=== PATIENT | female | born 1950 | race African-American/Black ===

== ENCOUNTER 2017-08-24 15:38 | Inpatient (IN) ==
--- NOTE | 2017-08-24 15:47 | Emergency Department Note ---
Disposition Clinical Impression: Congestive heart failure Qualifiers: Congestive heart failure type: unspecified Congestive heart failure chronicity : acute Qualified Code(s): I50.9 - Heart failure, unspecified Dyspnea Qualifiers: Dyspnea type: unspecified Qualified Code(s): R06.00 - Dyspnea, unspecified Disposition: Admitted As Inpatient Condition: Fair Referrals: Carlos Landon MD [Primary Care Provider] - Time of Disposition: 18:04 SOB HPI - General Chief Complaint: ED Shortness of Breath/Dyspnea Stated Complaint: edema/no urine x 24 hours Time Seen by Provider: 08/24/17 15:40 Source: patient, EMS Mode of arrival: EMS Limitations: no limitations Nursing Notes Reviewed: Yes Vital Signs Reviewed: Yes - History of Present Illness 67-year-old who comes in complaining of increasing lower extremity edema dyspnea and no urine output. Pt Subjective Complaint: shortness of breath Onset (ago): day(s) Severity: moderate Consistency/Duration: constant Improves with: nothing Worsens with: exertion Known history of: COPD, congestive heart failure Associated symptoms: Reports: other Treatment prior to arrival: none Cough present: Yes Cough Description: Involuntary (Snap) - Related Data Home Medications Medication Instructions Recorded Confirmed Brinzolamide/Brimonidine Tart 1 drop OP TID 06/24/15 08/09/17 [Simbrinza 1%-0.2% Eye Drops] Cholecalciferol (Vitamin D3) 2,000 unit PO DAILY 06/24/15 08/09/17 [Vitamin D3] HYDROcodone/Acet 5/325 mg [[place] 1 tab PO TID PRN 06/24/15 08/09/17 5-325 mg] Latanoprost [Xalatan] 1 drop OP HS 06/24/15 08/09/17 Simvastatin [Zocor] 40 mg PO HS 06/24/15 08/09/17 Albuterol Sulfate [Ventolin Hfa] 2 puff IH Q4H PRN 08/09/17 08/09/17 Budesonide/Formoterol 160/4.5 2 puff IH BID 08/09/17 08/09/17 [Symbicort 160/4.5] Ferrous Sulfate 325 mg PO DAILY 08/09/17 08/09/17 Folic Acid 1 mg PO DAILY 08/09/17 08/09/17 Insulin Glargine [Lantus] 62 unit SQ BID 08/09/17 08/09/17 Insulin LISPRO [Humalog Kwikpen 0 unit SQ TID 08/09/17 08/09/17 U-100] Tiotropium [Spiriva] 18 mcg IH DAILY 08/09/17 08/09/17 rOPINIRole [Requip] 0.25 mg PO HS 08/09/17 08/09/17 Previous Rx's Medication Instructions Recorded Carvedilol [Coreg] 3.125 mg PO BIDWM #60 tablet 06/27/15 Amiodarone [Cordarone] 400 mg PO BID 30 Days #120 tablet 08/16/17 Aspirin 81 mg PO DAILY 30 Days #30 tab.chew 08/16/17 Diltiazem CD (24hr) [Cardizem CD] 240 mg PO DAILY 30 Days #30 08/16/17 cap.er.24h Metoprolol [Lopressor] 50 mg PO BID 30 Days #120 tablet 08/16/17 Rivaroxaban [Xarelto] 15 mg PO 1700 30 Days #30 tablet 08/16/17 Allergies Allergy/AdvReac Type Severity Reaction Status Date / Time No Known Allergies Allergy Verified 06/24/15 17:24 All systems ED: reviewed and negative except as stated. Constitutional: Denies: fever, chills, weakness, weight change Eyes: Denies: eye pain, eye discharge, vision change ENT ED: Denies: ear pain, throat pain, dental pain, hearing loss, epistaxis, congestion, dysphagia Cardiovascular: Denies: chest pain, palpitations, dyspnea on exertion, edema, syncope Respiratory: Reports: dyspnea. Denies: cough, wheezes, hemoptysis, stridor Gastrointestinal: Denies: abdominal pain, nausea, vomiting, diarrhea, constipation, hematemesis, melena, hematochezia Genitourinary: Denies: dysuria, frequency, hematuria, discharge Musculoskeletal: Denies: back pain, neck pain, arthralgia, myalgia Integumentary: Denies: rash, abrasion, lesions Neurological: Denies: headache, weakness, numbness, paresthesias, confusion, abnormal gait, vertigo Psychiatric: Denies: anxiety, depression, suicidal thoughts, homicidal thoughts , auditory hallucinations, visual hallucinations Endocrine: Denies: fatigue Hematological/Lymphatic: Denies: easy bleeding, easy bruising Allergic/Immunologic: Denies: facial swelling, urticaria Past Medical History - Past Medical History Medical history: Reports: asthma, atrial fibrillation, diabetes, hyperlipidemia , hypertension, other Surgical history: Reports: cholecystectomy, hysterectomy Psychiatric history: Reports: no psych history - Social History Smoking Status: Current every day smoker Smokeless Tobacco Status: No Alcohol use: Reports: none Drug use: Reports: none Physical Exam - General Limitations: no limitations General appearance: alert, in no apparent distress - Head Head exam: atraumatic, normocephalic, normal inspection - Eye Eye exam: Present: normal appearance, PERRL, EOMI - ENT ENT exam: normal exam, normal oropharynx, mucous membranes moist - Neck Neck exam: Present: normal inspection, full ROM, trachea midline - Chest Chest inspection: Present: normal inspection, symmetric chest wall rise - Respiratory Respiratory exam: Present: wheezes, accessory muscle use, prolonged expiratory phase - Cardiovascular Cardiovascular exam: Present: regular rate, normal rhythm, normal heart sounds - Abdominal Exam Abdominal exam: Present: soft, Non-Tender. Absent: tenderness, distention, guarding, rebound, rigidity - Extremities Exam Extremities exam: Present: pedal edema - Expanded Lower Extremity Exam Neurovascular/Tendon exam: Absent: motor deficit, sensory deficit, tendon deficit Gait: not tested/not observed - Back Exam Back exam: Present: normal inspection, full ROM. Absent: tenderness - Neurological Exam Neurological exam: Present: alert, oriented X3 - Psychiatric Psychiatric exam: Present: normal affect, normal mood - Skin Skin exam: Present: warm, dry, intact, normal color Course - Reevaluation(s) Reevaluation #1: 67-year-old with increasing shortness of breath. Workup shows elevated BNP chest x-ray shows mild CHF patient was given Lasix. Also noted she does have some mild renal insufficiency. Time: 18:03 - Consultations Consultation #1: Discussed with Altaf Beltran, rupinder. Time: 18:03 Vital Signs Temperature 98 F 08/24/17 15:43 Pulse Rate 64 08/24/17 15:43 Respiratory Rate 18 08/24/17 15:43 Blood Pressure 135/120 08/24/17 15:43 O2 Sat by Pulse Oximetry 98 08/24/17 15:43 Temperature 98 F 08/24/17 15:43 Pulse Rate 64 08/24/17 15:43 Respiratory Rate 18 08/24/17 17:45 Blood Pressure 135/120 08/24/17 15:43 O2 Sat by Pulse Oximetry 96 08/24/17 17:45 Oxygen Delivery Oxygen Delivery Nasal Cannula Shortness of Breath/Dyspnea - Lab Data Lab results reviewed: Yes I reviewed the patient's lab results. Result diagrams: 08/24/17 15:52 08/24/17 15:52 Lab Results 08/24/17 08/24/17 08/24/17 Range/Units 15:52 15:52 15:52 WBC 10.0 (4.3-11.1) K/mcL RBC 4.74 (3.82-4.97) M/mcL Hgb 12.4 (11.5-15.4) g/dL Hct 42.0 (35.3-44.9) % MCV 88.6 (83.0-100.0) fL MCH 26.2 L (28.0-33.3) pg MCHC 29.5 L (31.6-35.5) g/dL RDW 18.4 H (11.5-14.5) % Plt Count 372 (140-400) K/mcL MPV 10.7 (9.4-12.4) fL Immature Gran % 0.4 (0-4) % Seg Neutrophils % 74.9 % Lymphocytes % 17.1 % Monocytes % 5.8 % Eosinophils % 1.1 % Basophils % 0.7 % Neutrophils # 7.5 (1.6-8.9) K/mcL Lymphocytes # 1.7 (0.6-4.6) K/mcL Monocytes # 0.6 (0.0-1.3) K/mcL Eosinophils # 0.1 (0.0-0.6) K/mcL Basophils # 0.1 (0.0-0.2) K/mcL Sodium 139 (136-145) mEq/L Potassium 4.4 (3.5-5.1) mEq/L Chloride 103 (98-107) mEq/L Carbon Dioxide 32 H (23-29) mEq/L BUN 38 H (8-23) mg/dL Creatinine 2.11 H (0.60-1.20) mg/dL Est GFR ( Amer) 28 L (> 60) Est GFR (Non-Af Amer) 23 L (> 60) BUN/Creatinine Ratio 18 (6-26) Glucose 119 H (70-105) mg/dL Calculated Osmolality 298 (280-300) Lactic Acid 0.9 (0.5-2.2) mmol/L Calcium 8.9 (8.6-10.3) mg/dL Troponin I (< 0.04) ng/mL B-Natriuretic Peptide (Less than 100) pg/mL 08/24/17 08/24/17 Range/Units 15:52 15:52 WBC (4.3-11.1) K/mcL RBC (3.82-4.97) M/mcL Hgb (11.5-15.4) g/dL Hct (35.3-44.9) % MCV (83.0-100.0) fL MCH (28.0-33.3) pg MCHC (31.6-35.5) g/dL RDW (11.5-14.5) % Plt Count (140-400) K/mcL MPV (9.4-12.4) fL Immature Gran % (0-4) % Seg Neutrophils % % Lymphocytes % % Monocytes % % Eosinophils % % Basophils % % Neutrophils # (1.6-8.9) K/mcL Lymphocytes # (0.6-4.6) K/mcL Monocytes # (0.0-1.3) K/mcL Eosinophils # (0.0-0.6) K/mcL Basophils # (0.0-0.2) K/mcL Sodium (136-145) mEq/L Potassium (3.5-5.1) mEq/L Chloride (98-107) mEq/L Carbon Dioxide (23-29) mEq/L BUN (8-23) mg/dL Creatinine (0.60-1.20) mg/dL Est GFR ( Amer) (> 60) Est GFR (Non-Af Amer) (> 60) BUN/Creatinine Ratio (6-26) Glucose (70-105) mg/dL Calculated Osmolality (280-300) Lactic Acid (0.5-2.2) mmol/L Calcium (8.6-10.3) mg/dL Troponin I < 0.03 (< 0.04) ng/mL B-Natriuretic Peptide 237 H (Less than 100) pg/mL - Radiology Data Radiology results reviewed: Yes I reviewed the patient's radiology results. Chest X-Ray 08/24/17 15:43 IMPRESSION: Small right pleural effusion with overlying atelectasis, likely due to mild CHF. D/ / Singh Coyne MD / Singh Coyne MD Interpreting Provider: Singh Coyne MD - EKG Data EKG attestation: Yes I reviewed and interpreted this EKG. Rate: Reports: bradycardia Rhythm: Reports: A.Fib QRS morphology: Reports: poor R-wave progression Interpretation: Reports: no acute changes
[2017-08-24 16:04] LABS: Basophils # 0.1 K/mcL (0.0-0.2); Basophils % 0.7 %; Eosinophils # 0.1 K/mcL (0.0-0.6); Eosinophils % 1.1 %; Hemoglobin 12.4 g/dL (11.5-15.4); Immature Granulocytes % 0.4 % (0-4); Lymphocytes # 1.7 K/mcL (0.6-4.6); Lymphocytes % 17.1 %; Mean Corpuscular HGB Conc 29.5 g/dL (31.6-35.5); Mean Corpuscular Hemoglobin 26.2 pg (28.0-33.3); Mean Corpuscular Volume 88.6 fL (83.0-100.0); Mean Platelet Volume 10.7 fL (9.4-12.4); Monocytes # 0.6 K/mcL (0.0-1.3); Monocytes % 5.8 %; Neutrophils # 7.5 K/mcL (1.6-8.9); Platelet Count 372 K/mcL (140-400); Red Blood Count 4.74 M/mcL (3.82-4.97); Red Cell Distribution Width 18.4 % (11.5-14.5); Segmented Neutrophils % 74.9 %
[2017-08-24 16:22] LABS: Calcium 8.9 mg/dL (8.6-10.3); Potassium 4.4 mEq/L (3.5-5.1)
[2017-08-24] MEDS ORDERED: Ipratropium/Albuterol Neb 3 ML IH ONE (17:20)
[2017-08-24] MEDS ORDERED: Furosemide 40 MG/4 ML VIAL IVP ONE (17:51)
[2017-08-24 17:56] LABS: Bilirubin,Urine Negative (Negative); Blood,Urine Trace (Negative); Clarity,Urine Cloudy (Clear); Color,Urine Yellow (Yellow); Glucose,Urine (UA) Normal (Normal); Ketones,Urine Negative (Negative); Leukocyte Esterase,Urine Negative (Negative); Nitrite,Urine Negative (Negative); Protein,Urine 100 mg/dL (Neg-Trace); Specific Gravity,Urine 1.024 (1.010-1.025); Urobilinogen,Urine Normal (Normal)
[2017-08-24 17:59] LABS: Bacteria,Urine None Seen per hpf (None-Few); RBC,Urine 0-3 per hpf (0-3); Squamous Epithelial Cell,Urine Many per lpf (None-Few); WBC,Urine 0-3 per hpf (0-3)
[2017-08-24 18:46] LABS: Hyaline Casts,Urine Moderate per lpf (None-Few); Renal Epithelial Cells,Urine Few per hpf (None-Few)
[2017-08-24] MEDS ORDERED: Naloxone 0.4 MG/ML INJ IVP PRN (20:04)
[2017-08-24] MEDS ORDERED: Acetaminophen 325 MG TABLET PO PRN (20:04)
[2017-08-24] MEDS ORDERED: Ondansetron 4 MG/2 ML VIAL IVP PRN (20:04)
[2017-08-24] MEDS ORDERED: rOPINIRole 0.25 MG TABLET PO SCH (21:00)
[2017-08-24] MEDS ORDERED: Melatonin 3 MG TABLET PO PRN (21:01)
[2017-08-24] MEDS: Budesonide/Formoterol 160/4.5 MDI IH SCH (21:29)
[2017-08-24] MEDS: *HR* HYDROcodone/Acet 5/325 mg TABLET PO PRN (21:32)
[2017-08-24] MEDS: Furosemide 40 MG/4 ML VIAL IVP SCH (21:32)
[2017-08-24] MEDS: *HR* Amiodarone 200 MG TABLET PO SCH (21:33)
[2017-08-24] MEDS: Brinzolamide/Brimonidine Tart [Simbrinza 1%-0.2% Eye OP SCH (21:34)
[2017-08-24] MEDS: Latanoprost 2.5 ML BOTTLE BOTH EYES SCH (21:35)
[2017-08-24] MEDS: Insulin DETEMIR 100 UNIT/ML X5UNITS SQ SCH (21:37)
--- NOTE | 2017-08-24 22:31 | Internal Med History&Physical ---
Date of Encounter: 08/24/17 Time of Encounter: 20:00 Assessment and Plan (1) Diastolic CHF, acute on chronic Current visit: Yes Status: Acute Will admit the pt into Tele so far negative trop will trend on trop pt denied any CP Reviewed her 2 D Echo from 08/10/17 - no documented LVEF due to poor quality study Repeat 2D Echo again Reviewed her CXR showed Pleural effusion / Inc Vascular congestion - Ascities She does have anasarca too will start her on IV diuresis with Lasix 40mg IV BID cont home med Metoprolol ASA + Statin (2) Anasarca Current visit: Yes Status: Acute (3) FRANK (acute kidney injury) Current visit: No Status: Acute She does have mildly elevated Cr on her baseline mostly due to cardiorenal syndrome consulted Nephro avoid nephro toxic meds close monitoring (4) Chronic kidney disease, stage III (moderate) Current visit: No Status: Acute (5) Diabetes Current visit: No Status: Chronic on Levemir + ISS Qualifiers: Diabetes mellitus type: type 2 Diabetes mellitus complication status: with kidney complications Diabetes mellitus complication detail: with chronic kidney disease Diabetes mellitus intermodal dispatcher insulin use: with intermodal dispatcher use Chronic kidney disease stage: stage 3 (moderate) Qualified Code(s): E11.22 - Type 2 diabetes mellitus with diabetic chronic kidney disease; N18.3 - Chronic kidney disease, stage 3 (moderate); N18.3 - Chronic kidney disease, stage 3 ( moderate); Z79.4 - terminal block assembler (current) use of insulin; Z79.4 - MCC ( current) use of insulin; Z79.4 - MCC (current) use of insulin; Z79.4 - 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 block assembler (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) 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 of 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 (6) Chronic a-fib Current visit: Yes Status: Acute Rate controlled with Cardizem + Amiodarone 200mg BID + Metoprolol 50mg On Xarelto for anti coag (7) HTN (hypertension) Current visit: No Status: Chronic Resumed home meds Qualifiers: Hypertension type: unspecified Qualified Code(s): I10 - Essential (primary ) hypertension (8) Morbid obesity with BMI of 40.0-44.9, adult Current visit: Yes Status: Chronic Counseled to loose weight she does have morbid obesity with BMI 42 Internal Medicine - H&P: HPI Chief complaint: Shortness of breath, swelling in both legs Admitted From: Emergency Dept Plans for Post Hospital Care: Home History of present illness: Ms. Zhong is a 67 year old female with a history of diabetes, COPD, Diastolic CHF, chronic A. fib, chronic hypoxic resp failure uses 2 lit O2 at home, who presented to the ED with worsening shortness of breath and b/l LE swelling. She also mentioned oliguria / decreased urine out put from last 2-3 days. She denied any CP. Denied any N/V. She also concerned about her increased abdominal girth too. She was given Lasix 40mg IV x 1 dose in the ER, now she feels little better. Past Med Surg Social Fam HX - Past Medical History Medical history: asthma, atrial fibrillation, diabetes, hyperlipidemia, hypertension, other Psychiatric history: anxiety - Past Surgical History Surgical History: cholecystectomy, hysterectomy - Social History Smoking Status: Current every day smoker Smokeless Tobacco Status: No Alcohol use: none Drug use: none - Family History Mother Hx Family Cardiac Disorders: Yes Internal Medicine - H&P: Meds Brinzolamide/Brimonidine Tart [Simbrinza 1%-0.2% Eye Drops] 1 drop OP TID [History] Cholecalciferol (Vitamin D3) [Vitamin D3] 2,000 unit PO DAILY 06/24/15 [History] HYDROcodone/Acet 5/325 mg [[place] 5-325 mg] 1 tab PO TID PRN 06/24/15 [History] Latanoprost [Xalatan] 1 drop OP HS 06/24/15 [History] Simvastatin [Zocor] 40 mg PO HS 06/24/15 [History] Carvedilol [Coreg] 3.125 mg PO BIDWM #60 tablet 06/27/15 [Rx] Albuterol Sulfate [Ventolin Hfa] 2 puff IH Q4H PRN 08/09/17 [History] Budesonide/Formoterol 160/4.5 [Symbicort 160/4.5] 2 puff IH BID 08/09/17 [ History] Ferrous Sulfate 325 mg PO DAILY 08/09/17 [History] Folic Acid 1 mg PO DAILY 08/09/17 [History] Insulin Glargine [Lantus] 62 unit SQ BID 08/09/17 [History] Insulin LISPRO [Humalog Kwikpen U-100] 0 unit SQ TID 08/09/17 [History] Tiotropium [Spiriva] 18 mcg IH DAILY 08/09/17 [History] rOPINIRole [Requip] 0.25 mg PO HS 08/09/17 [History] Amiodarone [Cordarone] 400 mg PO BID 30 Days #120 tablet 08/16/17 [Rx] Aspirin 81 mg PO DAILY 30 Days #30 tab.chew 08/16/17 [Rx] Diltiazem CD (24hr) [Cardizem CD] 240 mg PO DAILY 30 Days #30 cap.er.24h [Rx] Metoprolol [Lopressor] 50 mg PO BID 30 Days #120 tablet 08/16/17 [Rx] Rivaroxaban [Xarelto] 15 mg PO 1700 30 Days #30 tablet 08/16/17 [Rx] FLUoxetine HCl [Fluoxetine HCl] 10 mg PO DAILY 08/24/17 [History] Torsemide [Demadex] 20 mg PO DAILY 08/24/17 [History] 3 Allergy/AdvReac Type Severity Reaction Status Date / Time No Known Allergies Allergy Verified 06/24/15 17:24 All Systems PM: A 10-system review of systems was performed and is negative for pertinent findings except as documented above in the HPI. Review of systems: All the systems are reviewed everything is benign except the systems and symptoms I mentioned in the history of present illness - Constitutional Vitals: Temp Pulse Resp BP Pulse Ox 98 F 69 20 121/79 95 08/24/17 15:43 08/24/17 20:07 08/24/17 20:07 08/24/17 20:07 08/24/17 20:07 General appearance: Present: A&O X 3, obese, answers questions appropriately - Neck Neck exam general surgery: Present: supple - Respiratory Respiratory exam: Present: decreased breath sounds, wheezes (mild). Absent: rales, respiratory distress, rhonchi - Cardiovascular Cardiovascular exam: Present: irregular rhythm, +S1, +S2. Absent: systolic murmur, tachycardia - GI/Abdominal GI/Abdominal exam: Present: distended, normal bowel sounds, soft. Absent: rebound, rigid, tenderness Additional comments: Sub Q edema in the lower abdomen wall region - Extremities Exam Extremities exam: Present: pedal edema (2-3 + pitting edema). Absent: calf tenderness, tenderness - Back Exam Back exam: Absent: CVA tenderness (L), CVA tenderness (R) - Neurological Exam Neurological exam: Present: alert, oriented X3 - Psychiatric Psychiatric exam: Present: normal affect, normal mood - Skin Skin exam: Absent: rash Internal Med - H&P Results - Labs CBC & Chem 7: 08/24/17 15:52 08/24/17 15:52
[2017-08-24] MEDS ORDERED: *HR* Dextrose 50 % in Water (Syg) 50 ML SYRINGE IVP PRN (22:41)
[2017-08-24] MEDS ORDERED: Dextrose Gel 15 GM/37.5 ML TUBE PO PRN ×2 (22:41)
[2017-08-24] MEDS ORDERED: D5% in Water 1,000 ML IVC PRN (22:41)
[2017-08-25 05:43] LABS: Basophils # 0.1 K/mcL (0.0-0.2); Basophils % 0.8 %; Eosinophils # 0.1 K/mcL (0.0-0.6); Eosinophils % 0.8 %; Hematocrit 40.9 % (35.3-44.9); Hemoglobin 12.3 g/dL (11.5-15.4); Immature Granulocytes % 0.3 % (0-4); Lymphocytes # 1.6 K/mcL (0.6-4.6); Lymphocytes % 18.1 %; Mean Corpuscular HGB Conc 30.1 g/dL (31.6-35.5); Mean Corpuscular Hemoglobin 26.3 pg (28.0-33.3); Mean Corpuscular Volume 87.6 fL (83.0-100.0); Mean Platelet Volume 11.1 fL (9.4-12.4); Monocytes # 0.8 K/mcL (0.0-1.3); Monocytes % 8.5 %; Neutrophils # 6.4 K/mcL (1.6-8.9); Platelet Count 325 K/mcL (140-400); Red Blood Count 4.67 M/mcL (3.82-4.97); Red Cell Distribution Width 18.5 % (11.5-14.5); Segmented Neutrophils % 71.5 %
[2017-08-25 06:09] LABS: Calcium 8.5 mg/dL (8.6-10.3); Chol/HDL Ratio 2.7 (0-4.9); Potassium 4.4 mEq/L (3.5-5.1)
[2017-08-25] MEDS: *HR* Amiodarone 200 MG TABLET PO SCH ×2 (07:58→20:50)
[2017-08-25] MEDS: Furosemide 40 MG/4 ML VIAL IVP SCH ×2 (07:58→20:51)
[2017-08-25] MEDS: FLUoxetine HCl 10 MG CAPSULE PO SCH (07:58)
[2017-08-25] MEDS: Insulin LISPRO 300 UNITS/3 ML VIAL SQ SCH ×4 (07:58→20:51)
[2017-08-25] MEDS: Cholecalciferol (D-3) 1,000 UNIT TABLET PO SCH (07:58)
[2017-08-25] MEDS: Folic Acid 1 MG TABLET PO SCH (07:59)
[2017-08-25] MEDS: Insulin DETEMIR 100 UNIT/ML X5UNITS SQ SCH ×2 (07:59→20:48)
[2017-08-25] MEDS: Diltiazem CD (24hr) 240 MG CAPSULE PO SCH (07:59)
[2017-08-25] MEDS: Aspirin 81 MG TAB.CHEW PO SCH (07:59)
[2017-08-25] MEDS: Brinzolamide/Brimonidine Tart [Simbrinza 1%-0.2% Eye OP SCH ×3 (08:00→20:48)
[2017-08-25] MEDS: Tiotropium 18 MCG inhalation IH SCH (08:26)
[2017-08-25] MEDS: Budesonide/Formoterol 160/4.5 MDI IH SCH ×2 (08:26→19:59)
--- NOTE | 2017-08-25 10:07 | Nephrology Consult Note ---
Date of Encounter: 08/25/17 Time of Encounter: 10:05 Assessment and Plan (1) Chronic kidney disease, stage III (moderate) Current Visit: No Status: Acute Patient has stage III chronic kidney disease in the setting of diabetes, obesity , severe pulmonary hypertension and valvular heart disease. She is also status post left nephrectomy back in 2005. Her creatinine is a bit higher than it was when she left the hospital several weeks ago. She does require diuresis because of her volume overload related to her pulmonary hypertension and valvular heart disease. We will continue to monitor her renal function. Also do a bladder scan to make sure she is emptying her bladder normally. She may have some underlying neurogenic bladder issues related to her long-standing diabetes. (2) Pulmonary hypertension, moderate to severe Current Visit: No Status: Acute (3) Tricuspid regurgitation Current Visit: No Status: Acute Qualifiers: Cardiac valve disease etiology: nonrheumatic Qualified Code(s): I36.1 - Nonrheumatic tricuspid (valve) insufficiency (4) Mitral regurgitation Current Visit: No Status: Acute Qualifiers: Cardiac valve disease etiology: nonrheumatic Qualified Code(s): I34.0 - Nonrheumatic mitral (valve) insufficiency History of Present Illness - History of Present Illness This is a 67-year-old female who is admitted because she thought she was not passing enough urine. She has a history of stage III chronic kidney disease with a creatinine ranging from 1.5-1.8. Current creatinine is 2.14. She was recently hospitalized with worsening edema and shortness of breath. She was diagnosed with right-sided congestive heart failure in the setting of severe pulmonary hypertension along with moderate to severe tricuspid regurgitation and moderate mitral regurgitation. She has a history of diabetes, COPD, diastolic heart failure, and atrial fibrillation. The patient has bladder incontinence. She says at home she was voiding only small amounts. She did not have an urge to void any anymore. She does not have the feeling that she was not emptying her bladder completely. She does have significant lower extremity edema as well as chronic shortness of breath. Past Med Surg Social Fam HX - Past Medical History Medical history: asthma, atrial fibrillation, diabetes, hyperlipidemia, hypertension, other Psychiatric history: anxiety - Past Surgical History Surgical History: cholecystectomy, hysterectomy - Social History Smoking Status: Current every day smoker Smokeless Tobacco Status: No Alcohol use: none Drug use: none - Family History Mother Hx Family Cardiac Disorders: Yes Medications and Allergies Brinzolamide/Brimonidine Tart [Simbrinza 1%-0.2% Eye Drops] 1 drop OP TID [History] Cholecalciferol (Vitamin D3) [Vitamin D3] 2,000 unit PO DAILY 06/24/15 [History] HYDROcodone/Acet 5/325 mg [[place] 5-325 mg] 1 tab PO TID PRN 06/24/15 [History] Latanoprost [Xalatan] 1 drop OP HS 06/24/15 [History] Simvastatin [Zocor] 40 mg PO HS 06/24/15 [History] Carvedilol [Coreg] 3.125 mg PO BIDWM #60 tablet 06/27/15 [Rx] Albuterol Sulfate [Ventolin Hfa] 2 puff IH Q4H PRN 08/09/17 [History] Budesonide/Formoterol 160/4.5 [Symbicort 160/4.5] 2 puff IH BID 08/09/17 [ History] Ferrous Sulfate 325 mg PO DAILY 08/09/17 [History] Folic Acid 1 mg PO DAILY 08/09/17 [History] Insulin Glargine [Lantus] 62 unit SQ BID 08/09/17 [History] Insulin LISPRO [Humalog Kwikpen U-100] 0 unit SQ TID 08/09/17 [History] Tiotropium [Spiriva] 18 mcg IH DAILY 08/09/17 [History] rOPINIRole [Requip] 0.25 mg PO HS 08/09/17 [History] Amiodarone [Cordarone] 400 mg PO BID 30 Days #120 tablet 08/16/17 [Rx] Aspirin 81 mg PO DAILY 30 Days #30 tab.chew 08/16/17 [Rx] Diltiazem CD (24hr) [Cardizem CD] 240 mg PO DAILY 30 Days #30 cap.er.24h [Rx] Metoprolol [Lopressor] 50 mg PO BID 30 Days #120 tablet 08/16/17 [Rx] Rivaroxaban [Xarelto] 15 mg PO 1700 30 Days #30 tablet 08/16/17 [Rx] FLUoxetine HCl [Fluoxetine HCl] 10 mg PO DAILY 08/24/17 [History] Torsemide [Demadex] 20 mg PO DAILY 08/24/17 [History] 3 Allergy/AdvReac Type Severity Reaction Status Date / Time No Known Allergies Allergy Verified 06/24/15 17:24 Review of Systems Constitutional: no excessive sweating, no weight loss Eyes: bilateral: blurred vision (patient denies), diplopia (patient denies) Nose, mouth and throat: no dizziness, no headache(s) Cardiovascular: as per HPI, dyspnea, dyspnea on exertion, edema Respiratory: as per HPI, cough, dyspnea, dyspnea on exertion Gastrointestinal: no abdominal pain, no change in bowel habits Genitourinary Female: as per HPI, difficulty voiding, urinary incontinence Musculoskeletal: no muscle weakness, no numbness Integumentary: no hirsutism, no striae Neurological: as per HPI Psychiatric: no depression, no difficulty concentrating Endocrine: as per HPI Exam - Vital Signs Vital signs: Initial Vital Signs Temp Pulse Resp BP Pulse Ox 98 F 64 18 135/120 98 08/24/17 15:43 08/24/17 15:43 08/24/17 15:43 08/24/17 15:43 08/24/17 15:43 Vital Signs - Last 8 Hours Temp Pulse Resp BP Pulse Ox 08/25/17 08:29 16 99 08/25/17 07:49 97.9 F 78 18 114/73 93 08/25/17 03:15 98.1 F 74 18 127/74 97 Intake and Output 08/24/17 08/25/17 08/25/17 23:59 07:59 15:59 Output Total 450 / 450 Balance -450 / -450 Output: Urine 450 / 450 Other: # Voids 1 Blood Glucose* 162 196 226 - General Appearance Exam: Patient is alert and oriented. She is in no acute distress. Lungs diminished breath sounds. Heart regular rate and rhythm with a 2/6 ejection murmur. Abdomen is obese. Lower extremity show 3+ lower extremity edema with some evidence of early cellulitis. Results - Lab Results 08/25/17 05:19 08/25/17 05:19 Most recent lab results Calcium 8.5 mg/dL (8.6-10.3) L 08/25/17 05:19 Magnesium 2.0 mg/dL (1.6-2.6) 08/25/17 05:19 Consult Discharge Plan - Plan
--- NOTE | 2017-08-25 12:19 | Electrocardiograph Report ---
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
[2017-08-25] MEDS: *HR* HYDROcodone/Acet 5/325 mg TABLET PO PRN (16:04)
[2017-08-25] MEDS: *HR* Rivaroxaban 15 MG TABLET PO SCH (16:50)
[2017-08-25] MEDS ORDERED: rOPINIRole 0.25 MG TABLET PO PRN (16:58)
--- NOTE | 2017-08-25 17:24 | Event Note ---
Date of Encounter: 08/25/17 Time of Encounter: 17:23 (1) Diastolic CHF, acute on chronic: CXR showed Pleural effusion / Inc Vascular congestion - Ascities. Cont IV diuresis with Lasix 40mg IV BID. TTE pending (2) FRANK (acute kidney injury): mildly elevated Cr on her baseline. Likely due to cardiorenal syndrome. Avoid nephro toxic meds. Nephrology consulted (3) Diabetes: per on Levemir + ISS. MOnitor blood sugars and titrate PRN (4) Chronic a-fib: rate controlled with Cardizem, amiodarone, metoprolol, xarelto (5) HTN: cont home meds (6) Morbid obesity with BMI of 40.0-44.9: BMI 42 (7) DVT prophylaxis: Xarelto
[2017-08-25] MEDS: Latanoprost 2.5 ML BOTTLE BOTH EYES SCH (21:05)
[2017-08-26 06:11] LABS: Albumin/Globulin Ratio 1.1 (1.1-2.2); Bilirubin,Total 0.4 mg/dL (0.3-1.0); Calcium 8.4 mg/dL (8.6-10.3); Globulin 2.7 g/dL (2.4-3.5); Potassium 4.5 mEq/L (3.5-5.1); Total Protein 5.7 g/dL (6.4-8.9)
[2017-08-26] MEDS: Furosemide 40 MG/4 ML VIAL IVP SCH ×2 (08:54→21:08)
[2017-08-26] MEDS: Diltiazem CD (24hr) 240 MG CAPSULE PO SCH (08:54)
[2017-08-26] MEDS: Aspirin 81 MG TAB.CHEW PO SCH (08:54)
[2017-08-26] MEDS: Folic Acid 1 MG TABLET PO SCH (08:54)
[2017-08-26] MEDS: Cholecalciferol (D-3) 1,000 UNIT TABLET PO SCH (08:54)
[2017-08-26] MEDS: *HR* Amiodarone 200 MG TABLET PO SCH ×2 (08:54→21:06)
[2017-08-26] MEDS: rOPINIRole 0.25 MG TABLET PO PRN (08:54)
[2017-08-26] MEDS: FLUoxetine HCl 10 MG CAPSULE PO SCH (08:54)
[2017-08-26] MEDS: Insulin LISPRO 300 UNITS/3 ML VIAL SQ SCH ×4 (08:55→21:12)
[2017-08-26] MEDS: Insulin DETEMIR 100 UNIT/ML X5UNITS SQ SCH ×2 (09:02→21:13)
[2017-08-26] MEDS: Brinzolamide/Brimonidine Tart [Simbrinza 1%-0.2% Eye OP SCH ×3 (09:11→21:14)
[2017-08-26] MEDS: Budesonide/Formoterol 160/4.5 MDI IH SCH ×2 (10:37→23:09)
[2017-08-26] MEDS: Tiotropium 18 MCG inhalation IH SCH (10:37)
--- NOTE | 2017-08-26 10:42 | Nephrology Progress Note ---
Date of Encounter: 08/26/17 Time of Encounter: 10:10 - Assessment and Plan (1) FRANK (acute kidney injury) Current Visit: No Status: Acute FRANK most likely related to diuresis because of her volume overload related to her pulmonary hypertension and valvular heart disease.superimposed on CKD 3 in setting of diabetes, obesity, severe pulmonary hypertension and valvular heart disease. Renal fct plateued. Documented urine output 1200cc. Will continue to monitor, Avoid nephrotoxins, I&O. Subjective Interval history: Ambulating back from bathroom. Tachypneic. She states this is her usual breathing with activity. Objective - Vital Signs Vital signs: Vital Signs Temp Pulse Resp BP Pulse Ox 08/26/17 07:35 97.7 F 65 18 127/78 96 08/26/17 02:49 97.8 F 67 16 124/70 96 08/25/17 23:29 97.8 F 67 16 116/76 97 08/25/17 20:01 17 97 08/25/17 19:04 97.9 F 57 16 131/75 96 08/25/17 15:25 97.9 F 70 16 124/77 95 08/25/17 11:55 97.6 F 68 17 118/66 93 Intake and Output 08/25/17 08/26/17 08/26/17 23:59 07:59 15:59 Output Total 350 / 350 600 / 600 Balance -350 / -350 -600 / -600 Output: Urine 350 / 350 600 / 600 Other: # Urine Diapers 1 Blood Glucose* 235 283 - General Appearance General appearance: Present: well-developed, well-nourished, appears started age , obese EENT: Present: mucous membranes moist Neck: Present: no JVD Respiratory: Present: clear Cardiology: Present: edema, regular rate, regular rhythm Additional Comments: 1-2+ knnes down Gastrointestinal: Present: normoactive bowel sounds, no tenderness Integumentary: Present: warm and dry Neurologic: Present: alert and oriented x3 - Lab 08/25/17 05:19 08/26/17 05:40 Most recent lab results Calcium 8.4 mg/dL (8.6-10.3) L 08/26/17 05:40 Magnesium 2.0 mg/dL (1.6-2.6) 08/25/17 05:19 Consult Discharge Plan - Plan Referrals: Carlos Landon MD [Primary Care Provider] -
[2017-08-26] MEDS: *HR* HYDROcodone/Acet 5/325 mg TABLET PO PRN (15:46)
[2017-08-26] MEDS: *HR* Rivaroxaban 15 MG TABLET PO SCH (15:46)
--- NOTE | 2017-08-26 16:38 | Internal Med Progress Note ---
Date of Encounter: 08/26/17 Time of Encounter: 11:30 - Assessment and plan (1) Diastolic CHF, acute on chronic Current Visit: Yes Status: Acute Assessment and plan: per hx. 08/26/17 TTE with EF 60% and mild diastolic dysfunction. Symptomatic with shortness of breath and lower extremity edema. Likely secondary to dietary and medication noncompliance. Continue IV Lasix. Strict I and O's, daily weights. (2) Lower extremity edema Current Visit: Yes Status: Acute Assessment and plan: Suspect multifactorial with diastolic heart and, low albumin and noncompliance with low sodium diet. Lower external nares appear somewhat cellulitic with erythema, tenderness and warmth. Lower extremity venous Dopplers pending. (3) Chronic kidney disease, stage III (moderate) Current Visit: No Status: Acute Assessment and plan: hx stage III chronic kidney disease in the setting of diabetes, obesity, severe pulmonary hypertension and valvular heart disease. Renal function worse than baseline. At her renal function closely with IV Lasix. Bladder scan to ensure complete bladder emptying. Nephrology following. (4) HTN (hypertension) Current Visit: No Status: Chronic Assessment and plan: per hx. BP controlled. Cont home BP medications Qualifiers: Hypertension type: unspecified Qualified Code(s): I10 - Essential (primary ) hypertension (5) Chronic a-fib Current Visit: Yes Status: Acute Assessment and plan: per hx. rate controlled. Continue home BB, amiodarone, CCB, Xarelto (6) DVT prophylaxis Current Visit: No Status: Chronic Assessment and plan: xarelto - Subjective Interval history: HEENT anicteric bedside. Patient is new to me, information obtained from chart review and patient report. Patient says she feels better and would like to go home today if possible. She still has significant edema to lower extremities and shortness of breath. I would like for her to stay 1 more day overnight or IV diuresis and she is agreeable. - Constitutional Vitals: Temp Pulse Resp BP Pulse Ox 98.0 F 63 18 114/69 96 08/26/17 16:33 08/26/17 16:33 08/26/17 16:33 08/26/17 16:33 08/26/17 16:33 General appearance: Present: A&O X 3, morbidly obese, obese, answers questions appropriately - Head Head exam: Present: atraumatic, normocephalic - Eye Eye exam: Present: PERRL, conjuntiva pink, sclera anicteric Pupils: Present: PERRL - Neck Neck exam general surgery: Present: supple, trachea midline. Absent: lymphadenopathy - Respiratory Respiratory exam: Present: CTAB. Absent: accessory muscle use, rales, rhonchi, wheezes - Cardiovascular Cardiovascular exam: Present: RRR, +S1, +S2. Absent: diastolic murmur, gallop, rubs, systolic murmur - GI/Abdominal GI/Abdominal exam: Present: normal bowel sounds, soft, no peritoneal signs. Absent: distended, tenderness - Extremities Exam Extremities exam: Present: pedal edema, warm, radial pulses palpable and symmetrical. Absent: calf tenderness, cyanotic - Neurological Exam Neurological exam: Present: CN II-XII intact, oriented X3, no focal deficits. Absent: pronater drift, facial droop, speech deficit - Skin Skin exam: Present: dry, intact Internal Medicine: Result - Labs CBC & Chem 7: 08/25/17 05:19 08/26/17 05:40 Labs: BMP 08/26/17 05:40 Sodium 139 Potassium 4.5 Chloride 102 Carbon Dioxide 32 H BUN 43 H Creatinine 2.12 H Glucose 213 H Calcium 8.4 L Liver Function 08/26/17 Range/Units 05:40 Total Bilirubin 0.4 (0.3-1.0) mg/dL AST 16 (13-39) Units/L ALT 12 (7-52) Units/L Alkaline Phosphatase 67 (34-104) Units/L Albumin 3.0 L (3.5-5.7) g/dL Consult Discharge Plan - Plan Referrals: Carlos Landon MD [Primary Care Provider] -
[2017-08-26] MEDS ORDERED: Bismuth Subsalicylate 120 ML ORAL SUSPENSION PO PRN (16:53)
[2017-08-26] MEDS: Albumin 25% 25gram/100mL 25 GM/100 ML IV.SOLN IVC SCH ×2 (18:06→19:54)
[2017-08-26] MEDS: cephALEXin 500 MG CAPSULE PO SCH ×2 (18:06→21:06)
[2017-08-26] MEDS: Latanoprost 2.5 ML BOTTLE BOTH EYES SCH (21:13)
[2017-08-27 05:55] LABS: Calcium 8.5 mg/dL (8.6-10.3); Potassium 4.7 mEq/L (3.5-5.1)
[2017-08-27 07:24] VITALS: BP 134/77
[2017-08-27] MEDS: Aspirin 81 MG TAB.CHEW PO SCH (08:21)
[2017-08-27] MEDS: cephALEXin 500 MG CAPSULE PO SCH (08:21)
[2017-08-27] MEDS: Folic Acid 1 MG TABLET PO SCH (08:22)
[2017-08-27] MEDS: Cholecalciferol (D-3) 1,000 UNIT TABLET PO SCH (08:22)
[2017-08-27] MEDS: FLUoxetine HCl 10 MG CAPSULE PO SCH (08:22)
[2017-08-27] MEDS: Diltiazem CD (24hr) 240 MG CAPSULE PO SCH (08:22)
[2017-08-27] MEDS: *HR* Amiodarone 200 MG TABLET PO SCH (08:23)
[2017-08-27] MEDS: Insulin DETEMIR 100 UNIT/ML X5UNITS SQ SCH (08:24)
[2017-08-27] MEDS: Brinzolamide/Brimonidine Tart [Simbrinza 1%-0.2% Eye OP SCH (08:25)
[2017-08-27] MEDS: Insulin LISPRO 300 UNITS/3 ML VIAL SQ SCH (08:26)
--- NOTE | 2017-08-27 09:36 | Nephrology Progress Note ---
Date of Encounter: 08/27/17 Time of Encounter: 09:10 - Assessment and Plan (1) FRANK (acute kidney injury) Current Visit: No Status: Acute FRANK most likely related to diuresis because of her volume overload related to her pulmonary hypertension and valvular heart disease.superimposed on CKD 3 in setting of diabetes, obesity, severe pulmonary hypertension and valvular heart disease. Renal fct plateued, slow decline. Documented urine output 1250cc. Will continue to monitor, Avoid nephrotoxins, I&O. Subjective Interval history: Sitting up in chair, no respiratory effort noted. States feels good. Started on Atb for RLE cellulitis. Objective - Vital Signs Vital signs: Vital Signs Temp Pulse Resp BP Pulse Ox 08/27/17 07:17 98.1 F 60 16 134/77 97 08/27/17 04:10 98.2 F 63 16 132/70 97 08/26/17 23:17 98.1 F 66 16 110/70 97 08/26/17 19:24 97.9 F 63 16 121/74 98 08/26/17 16:33 98.0 F 63 18 114/69 96 08/26/17 11:59 97.9 F 59 18 125/76 97 08/26/17 10:39 18 96 Intake and Output 08/26/17 08/27/17 08/27/17 23:59 07:59 15:59 Intake Total 440 / 440 1235 / 1235 Output Total 400 / 400 600 / 600 Balance 40 / 40 635 / 635 Intake: IV Fluids 200 / 200 Flexbumin 25 gm In 100 ml @ 60 200 / 200 mls/hr IVC .Q1H40M [facility] Rx#: [id number] Oral 240 / 240 1235 / 1235 Output: Urine 400 / 400 600 / 600 Other: Weight 127 kg Blood Glucose* 84 190 Patient Weight 08/27/17 23:59 Weight 127 kg - General Appearance General appearance: Present: well-developed, well-nourished, appears started age , obese EENT: Present: mucous membranes moist Neck: Present: no JVD Respiratory: Present: clear Cardiology: Present: edema, regular rate, regular rhythm Additional Comments: 1-2+ LE. RLE cellulitis, on Atb coverage. Gastrointestinal: Present: normoactive bowel sounds, no tenderness Integumentary: Present: warm and dry Neurologic: Present: alert and oriented x3 - Lab 02/07/18 05:19 08/27/17 04:54 Most recent lab results Calcium 8.5 mg/dL (8.6-10.3) L 08/27/17 04:54 Magnesium 2.0 mg/dL (1.6-2.6) 08/25/17 05:19 Consult Discharge Plan - Plan Referrals: Carlos Landon MD [Primary Care Provider] -
[2017-08-27] MEDS: Furosemide 40 MG/4 ML VIAL IVP SCH (09:41)
[2017-08-27] MEDS: Tiotropium 18 MCG inhalation IH SCH (10:35)
[2017-08-27] MEDS: Budesonide/Formoterol 160/4.5 MDI IH SCH (10:36)
--- NOTE | 2017-08-27 10:52 | Discharge Summary ---
Date of Encounter: 08/27/17 Time of Encounter: 10:49 - Discharge Diagnosis (1) Diastolic CHF, acute on chronic Priority: Primary Status: Acute Comments: per hx. 08/26/17 TTE with EF 60% and mild diastolic dysfunction. Symptomatic with shortness of breath and lower extremity edema. Patient reports legs have been swollen since last hospitalization; bilateral lower extremity venous Dopplers negative for DVT. Suspect multifactorial with IV fluids received from last admission, dietary and medication noncompliance. Symptoms improved with IV Lasix; shortness of breath significantly improved, lower extremity edema persists but overall improved; -1 L. Will encourage dietary and medication compliance. Continue home diuretic, BB. Recommend follow-up with primary assembler body in 2 weeks (2) Lower extremity edema Priority: Primary Status: Acute Comments: Bilateral lower extremities with severe pitting edema. Multifactorial as noted above. Bilateral lower extreme Dopplers negative for DVT. Strongly encourage leg elevation and compression wraps. (3) Chronic kidney disease, stage III (moderate) Priority: Primary Status: Acute Comments: hx stage III chronic kidney disease in the setting of diabetes, obesity, severe pulmonary hypertension and valvular heart disease. Renal function slightly worse than baseline on admission. Renal function slightly improved while inpatient. Discussed with nephrology and okay to discharge with outpatient follow-up. (4) HTN (hypertension) Priority: Primary Status: Chronic Comments: per hx. BP controlled. Cont home BP medication. Qualifiers: Hypertension type: unspecified Qualified Code(s): I10 - Essential (primary ) hypertension (5) Chronic a-fib Priority: Primary Status: Acute Comments: per hx. rate controlled. Continue home BB, amiodarone, CCB, Xarelto (6) Cellulitis Priority: Primary Status: Acute Comments: to bilateral lower extremities; right greater than left. Continue Keflex. Recommend follow-up with PCP within one week. Qualifiers: Site of cellulitis of extremity: lower extremity Laterality: right Qualified Code(s): L03.115 - Cellulitis of right lower limb - Discharge Medications Prescriptions: cephALEXin [Keflex] 500 mg PO QID #28 capsule Home Medications: Brinzolamide/Brimonidine Tart [Simbrinza 1%-0.2% Eye Drops] 1 drop OP TID [History] Cholecalciferol (Vitamin D3) [Vitamin D3] 2,000 unit PO DAILY 06/24/15 [History] HYDROcodone/Acet 5/325 mg [[place] 5-325 mg] 1 tab PO TID PRN 06/24/15 [History] Latanoprost [Xalatan] 1 drop OP HS 06/24/15 [History] Simvastatin [Zocor] 40 mg PO HS 06/24/15 [History] Carvedilol [Coreg] 3.125 mg PO BIDWM #60 tablet 06/27/15 [Rx] Albuterol Sulfate [Ventolin Hfa] 2 puff IH Q4H PRN 08/09/17 [History] Budesonide/Formoterol 160/4.5 [Symbicort 160/4.5] 2 puff IH BID 08/09/17 [ History] Ferrous Sulfate 325 mg PO DAILY 08/09/17 [History] Folic Acid 1 mg PO DAILY 08/09/17 [History] Insulin Glargine [Lantus] 62 unit SQ BID 08/09/17 [History] Insulin LISPRO [Humalog Kwikpen U-100] 0 unit SQ TID 08/09/17 [History] Tiotropium [Spiriva] 18 mcg IH DAILY 08/09/17 [History] rOPINIRole [Requip] 0.25 mg PO HS 08/09/17 [History] Amiodarone [Cordarone] 400 mg PO BID 30 Days #120 tablet 08/16/17 [Rx] Aspirin 81 mg PO DAILY 30 Days #30 tab.chew 08/16/17 [Rx] Diltiazem CD (24hr) [Cardizem CD] 240 mg PO DAILY 30 Days #30 cap.er.24h [Rx] Metoprolol [Lopressor] 50 mg PO BID 30 Days #120 tablet 08/16/17 [Rx] Rivaroxaban [Xarelto] 15 mg PO 1700 30 Days #30 tablet 08/16/17 [Rx] FLUoxetine HCl [Fluoxetine HCl] 10 mg PO DAILY 08/24/17 [History] Torsemide [Demadex] 20 mg PO DAILY 08/24/17 [History] cephALEXin [Keflex] 500 mg PO QID #28 capsule 08/27/17 [Rx] Allergies/Adverse Reactions: 3 Allergy/AdvReac Type Severity Reaction Status Date / Time No Known Allergies Allergy Verified 06/24/15 17:24 Procedures/tests Complete & Pending: Procedures Performed prior 72 hours Category Date Time Status EV limited echocardiogram Routine Y 08/25/17 22:41 Completed Venous Doppler [EV venous imaging LE BI] Routine Y 08/26/17 16:48 Completed Date of admission: 08/24/17 20:04 Primary care physician: Carlos Landon MD Consults: 08/24/17 21:01 Consult to Nephrology [CONS] Routine Consulting Provider: [facility] Reason for Consult: FRANK with CKD-3 Call Completed: Yes Discharging clinician: Ayala Brown Anticipated date of discharge: 08/27/17 - Patient Status Disposition: Home, Self-Care Condition: Fair Functional capacity at discharge: uses cane/walker Overall status at discharge: patient is progressing back to baseline - Discharge Instructions Instructions: Cephalexin (By mouth), Cellulitis (DC), Heart Failure (DC) Follow Up With: Carlos Landon MD [Primary Care Provider] - Forms: ED Satisfaction Letter - Diet and Activity Activity: increase activity as tolerated Diet: low fat, low cholesterol, low salt diet Interval History: Seen and examined at bedside. Patient says she feels back to baseline and would like to go home today. Still with lower ext edema but lightly improved. Discussed with patient at length the need to elevate legs as much as possible, adhere to low-sodium diet and suggested compression wraps as well. Patient states that she sleeps in a hospital bed at home with legs elevated. Has some shortness of breath with exertion but overall improved. Hospital course: See assessment and plan for hospital course - Time Spent with Patient Total time spent providing and/or coordinating discharge services: Less than 30 minutes - Constitutional Vitals: Temp Pulse Resp BP Pulse Ox 98.1 F 60 16 134/77 96 08/27/17 07:17 08/27/17 07:17 08/27/17 10:40 08/27/17 10:40 08/27/17 10:40 General appearance: Present: A&O X 3, morbidly obese, obese, answers questions appropriately - Head Head exam: Present: atraumatic, normocephalic - Eye Eye exam: Present: PERRL, conjuntiva pink, sclera anicteric Pupils: Present: PERRL - Neck Neck exam general surgery: Present: supple, trachea midline. Absent: lymphadenopathy - Respiratory Respiratory exam: Present: CTAB. Absent: accessory muscle use, rales, rhonchi, wheezes - Cardiovascular Cardiovascular exam: Present: RRR, +S1, +S2. Absent: diastolic murmur, gallop, rubs, systolic murmur - GI/Abdominal GI/Abdominal exam: Present: normal bowel sounds, soft, no peritoneal signs. Absent: distended, tenderness - Extremities Exam Extremities exam: Present: pedal edema, warm, radial pulses palpable and symmetrical. Absent: calf tenderness, cyanotic - Neurological Exam Neurological exam: Present: CN II-XII intact, oriented X3, no focal deficits. Absent: pronater drift, facial droop, speech deficit - Skin Skin exam: Present: dry, intact Additional comments: Lower extremity edema with erythema and warmth and tenderness, right greater than left
[2017-08-27] MEDS: *HR* HYDROcodone/Acet 5/325 mg TABLET PO PRN (10:56)
[2017-08-27] MEDS: rOPINIRole 0.25 MG TABLET PO PRN (10:56)
== END 2017-08-27 12:40 | disposition home or self-care (01) | DRG 291 ==
LOC: EMEROO 15:38 → 3BNU 15:38
PROVIDERS: ADMIT Nurse Practitioner; ATTEND Registered Nurse